=== PATIENT | female | born 1985 | race Caucasian/White ===

== ENCOUNTER 2023-03-03 19:58 | Emergency (ER) | payer BC, OTHER ==
[~2023-03-03] VITALS: Ht 149.9 cm; Wt 43.5 kg
[2023-03-03] MEDS ORDERED: ALBUTEROL FS 2.5 MG/3 ML VIAL.NEB NEB ONE (22:00)
[2023-03-03] MEDS ORDERED: predniSONE 20 MG TABLET PO ONE (22:00)
[2023-03-03] MEDS ORDERED: IPRATROPIUM NEB FS 0.5 MG/2.5 ML AMPUL.NEB NEB ONE (22:00)
[2023-03-03] MEDS ORDERED: predniSONE 20 MG TABLET ONE (22:02)
[2023-03-03] MEDS ORDERED: IPRATROPIUM NEB FS 0.5 MG/2.5 ML AMPUL.NEB ONE (22:06)
[2023-03-03] MEDS ORDERED: ALBUTEROL FS 2.5 MG/3 ML VIAL.NEB ONE (22:06)
[2023-03-03 22:15] VITALS: O2SAT 99
[2023-03-03 23:15] VITALS: O2SAT 100
[2023-03-03] MEDS ORDERED: PRED20TA PO (23:18)
[2023-03-03] MEDS ORDERED: AZIT250T13 PO (23:18)
[2023-03-03 23:54] VITALS: BP 125/74; TEMP 98.2; O2SAT 100
== END 2023-03-03 23:54 | disposition home or self-care (01) ==
LOC: ER 20:08
DX: J45.909 Unspecified asthma, uncomplicated (principal); R05.9 Cough, unspecified; Z90.710 Acquired absence of both cervix and uterus; Z60.2 Problems related to living alone
CPT/HCPCS: 99285; 71045; 94799; 94644; J7512